=== PATIENT | male | born 1955 | race Caucasian/White ===

== ENCOUNTER 2023-10-04 08:56 | Day surgery (SDC) | payer OTHER, SELFPAY ==
[2023-10-04] VITALS (9 sets, daily range): BP systolic 84–107; BP diastolic 65–82; PULSE 58–77; RESP 16–20; TEMP 36.1–36.2; O2SAT 91–98; BMI 27.0
[2023-10-04] MEDS: Lactated Ringers 1,000 ML 15 ML IV (09:26)
--- NOTE | 2023-10-04 09:41 | PCM.PRE.AN2 ---
ASA Classification* ASA Classification ASA Classification: 2 Assessment & Plan Anesthesia* Anesthesia Assessment Anesthesia Assessment: Discussed sedation and/or anesthesia options, risks, benefits, and alternatives with patient/parents/legal guardian/POA. Questions invited. The patient/parents/legal guardian/POA seems to understand and agrees to proceed with anesthesia plan. Reviewed the physical assessment, medical history, allergy history and patient home medications list prior to surgery/procedure/anesthetic and documented any changes. Performed airway and anesthesia risk assessments. 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 When Was Last Pacemaker Check QUESTION #4 FULL TEXT: You/Your Family Experience fever (hyperthermia) with Anesthesia Last Oral Intake Last Oral intake: Last Oral Intake NPO since 00:00 10/04/23 09:27 Meds taken in AM with sips of No 10/04/23 09:27 water? Meds patient instructed to take am of surgery PONV PONV - food preparation worker: PONV - food preparation worker Female No 09/30/23 15:28 HX of Motion Sickness No 09/30/23 15:28 HX of N/V After Surgery No 09/30/23 15:28 Non-Smoker No 09/30/23 15:28 Duration of Surgery greater No 09/30/23 15:28 than 60 minutes Number of Risk Factors PONV Score Height & Weight Height & Weight: Anesthesia: Height & Weight Height 5 ft 11 in 10/04/23 09:27 Weight: 87.997 kg 10/04/23 09:27 Body Mass Index (BMI) 27.0 10/04/23 09:27 Respiratory Assessment Respiratory Assessment - food preparation worker: Respiratory Tract Infection Hx - food preparation worker Hx Respiratory Tract Infection No 09/30/23 15:28 STOP Sleep Apnea STOP Sleep Apnea - food preparation worker: STOP Sleep Apnea - food preparation worker Hx Hypertension No 09/30/23 15:28 Hx Sleep Apnea No 09/30/23 15:28 CPAP BIPAP Do you snore loudly (louder No 09/30/23 15:28 than talking or can be heard Do you often feel tired/ No 09/30/23 15:28 fatigued/ sleepy during daytime? Has anyone observed you stop No 09/30/23 15:28 breathing during sleep? STOP Results Negative 09/30/23 15:28 QUESTION #5 FULL TEXT : Do you snore loudly (louder than talking or can be heard through closed doors)? 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 Specify any problems Hx of Preganancy in last 3 N/A 09/30/23 15:28 Months Nurse Filling Out Transfusion VCHRISTIN 09/30/23 15:28 & Questions: Date: 09/30/23 09/30/23 15:28 Time: 15:09/30/23 15:28 Patient unable to answer at this time (ie. confused, unrespo /Reproduction History /Reproductive History - food preparation worker: /Reproductive Hx- food preparation worker Hx Now Gestational Age (in weeks): EDC: Hx Hx Para Hx Section SAB Active Medications Active Medications: Current Medications Generic Name Dose Route Start Last Admin Trade Name Delia PRN Reason Stop Dose Admin Lactated Ringer's 1,000 mls @ 15 mls/hr 10/04/23 09:15 10/04/23 09:26 IV 15 mls/hr .Q48H KARLA Administration PFSH Medical History Wears dentures Smoker COPD (chronic obstructive pulmonary disease) Chronic cough Leg cramps History of stress test Home Medications ?Medication ?Instructions ?Recorded ?Last Taken ?Type rosuvastatin 20 mg tablet 20 mg PO DAILY 09/30/23 10/03/23 History tiotropium 2.5 mcg-olodaterol 2.5 2 puff inhalation DAILY 09/30/23 10/03/23 History mcg/actuation mist for inhalation (Stiolto Respimat) Allergy/AdvReac Type Severity Reaction Status Date / Time No Known Allergies Allergy Verified 10/04/23 09:16 Surgical History History of repair of ACL Hx of surgical procedure H/O colonoscopy Social History Smoking Status: Current every day smoker tobacco type: cigarettes alcohol intake: never substance use type: does not use Review of Systems (Anesthesia) ROS Narrative System reviewed and no additional complaints, except as documented.
--- NOTE | 2023-10-04 10:09 | PCM.HP.BLA ---
History and Physical Date of Admission: 10/04/23 Intake Vital Signs 08/01/2413:35 Height 5 ft 11 in Weight: 185 lb BMI 25.7 Intake Visit Reasons: COLONOSCOPY Chief Complaint: colonscopy Is patient in pain?: No Allergies No Known Allergies Allergy (Unverified 08/02/23 14:36) PFSH Surgical History (Updated 08/02/23 @ 14:42 by Latrice Leblanc LPN) H/O colonoscopy Social History (Updated 08/02/23 @ 14:44 by Latrice Leblanc LPN) Smoking Status: Current every day smoker alcohol intake: never substance use type: does not use HPI HPI Chief Complaint: colonscopy Details: Patient was informed that today's visit charges, even if billed to insurance may still be the patient's responsibility to pay. JOHN DAVIS, is a 68 M who presents to the office today for screening colonoscopy. Patient has last colonoscopy 13 years ago and polyps were removed. He denies abdominal pain or blood in stool at this time. He has no family history of colon cancer. [facility] ROS Const Constitutional: No anorexia, body ache or abnormal sleep pattern Eyes Eyes: No change in vision ENT ENT: No abnormal hearing, ear or mastoid pain, ear discharge, difficulty swallowing or lip swelling Resp Respiratory: No cough or chest congestion Cardio Cardiology: No chest pain at rest Gastro GI: Positive for bloating; No abdominal pain, constipation, difficulty swallowing, Blood in stool or vomiting Genitourinary Male: No burning urination Neuro Neurology: No abnormal hearing Psych Psychiatric: No abnormal sleep pattern Aller/Imm Allergy/Immunologic: No lip swelling Exam Const General: cooperative Orientation: alert and oriented x3 HENMT Head: normal to inspection Neck Neck: normal visual inspection and full ROM Chest Chest palpation & inspection: normal inspection of the chest Resp Effort & Inspection: normal respiratory effort Cardio Rate: regular rate Rhythm: regular rhythm GI Inspection: non-distended Palpation: soft and nontender Skin General: no rashes or lesions noted Neuro General: patient alert and patient oriented x3 Extrem General: full ROM Psych Appearance: grossly normal Mental Status: mental status grossly normal Coding Level of Care Code 11-20 minutes Diagnoses Screen for colon cancer Z12.11 Assessment and Plan Assessment and Plan (1) Screen for colon cancer: Status: Acute Plan: I discussed screening colonoscopy with the patient over the phone during virtual visit today. We were on the phone from [id number]. We discussed screening colonoscopy. I explained endoscopy in detail to the patient. I explained the risks including but not limited to stroke or heart attack with anesthesia, perforation of the GI tract, bleeding, infection. I explained that any of these could necessitate further emergency surgery. The patient understands and all questions were answered sufficiently. The patient wishes to proceed with procedure. Patient may continue his aspirin. Osmani Rizo MD Pager: [facility] [address] [place] [address], [address] [place] [address] Office: I have examined the patient and the H&P has been reviewed. There are no clinical changes since date of exam.
--- NOTE | 2023-10-04 10:15 | COLBX_PTH ---
PATIENT: JOHN DAVIS LOC: EN U#:[id number] AGE/SX: 68/M ROOM: RE10/04/[address]: Dr. Osmani Rizo MD : 1955 BED: DIS: 10/04/2023 SPEC #: [id number] RECD: 10/04/23 13:36 STATUS: FAVIAN RESteff #: [id number] DANA: 10/04/23 10:[address]: Osmani Rizo DEPT: SURGICAL PATHOLOGY RECD BY: Bertha Mrogan ENTERED: 10/07/23 09:41 SP TYPE: COLON BX OTHR DR: No Primary Care Phys Tissues: Rectum, NOS Procedures: Surgery Specimen Level IV HEADER OPERATION: Colonoscopy, polypectomy PRE-OP DIAGNOSIS: Screen for colon cancer TISSUE SUBMITTED: Rectal polyp MICROSCOPIC DIAGNOSIS Rectal polyp, polypectomy: Hyperplastic polyp. [facility]/ 10/08/2023 MICROSCOPIC DESCRIPTION Slides are reviewed. GROSS DESCRIPTION Received in fixative is one container labeled with the patient's name and designated Rectal polyp. The specimen consists of a gutierrez-pink polyp measuring 0.5 x 0.5 x 0.3 cm. The entire specimen is submitted in one cassette. [facility]/ 10/07/2023 TC:1 CPT:48160
--- NOTE | 2023-10-04 11:29 | OP.CCLET_ITS ---
10/04/2023 No Primary Care Physician Re : Colonoscopy procedure for Navdeep Syed Dear Care Physician This procedure was performed on Wednesday, October 04, 2023. My impressions and recommendations are as follows: Impressions : - The entire examined colon is normal. - One small polyp in the rectum, removed with a hot snare. Resected and retrieved. - The examination was otherwise normal on direct and retroflexion views. Recommendations : - Discharge patient to home. - Resume previous diet. - Continue present medications. - Await pathology results. - Repeat colonoscopy in 5 years for surveillance based on pathology results. My findings are described in the full procedure note, which is enclosed. If I can be of further assistance, please feel free to contact me at Doctor phone number(s): , Work: . Sincerely, Osmani Rizo MD 10/04/2023 11:29:00 AM This report has been signed electronically.
--- NOTE | 2023-10-04 11:29 | OP.COLON_ITS ---
Patient Name: Navdeep Syed Procedure Date: 10/04/2023 10:14 AM Date of : 1955 Age: 68 Procedure: Colonoscopy Indications: Screening for colorectal malignant neoplasm Providers: Osmani Rizo MD Referring MD: Osmani Rizo MD Medicines: Propofol per Anesthesia Patient Profile: This is a 68 year old male. Refer to note in patient chart for documentation of history and physical. Last Colonoscopy: none. The patient's first colonoscopy is today. Complications: No immediate complications. Estimated blood loss: Minimal. Procedure: Pre-Anesthesia Assessment: - Prior to the procedure, a History and Physical was performed, and patient medications and allergies were reviewed. The patient's tolerance of previous anesthesia was also reviewed. The risks and benefits of the procedure and the sedation options and risks were discussed with the patient. All questions were answered, and informed consent was obtained. Prior Anticoagulants: The patient has taken no anticoagulant or antiplatelet agents. After reviewing the risks and benefits, the patient was deemed in satisfactory condition to undergo the procedure. After I obtained informed consent, the scope was passed under direct vision. Throughout the procedure, the patient's blood pressure, pulse, and oxygen saturations were monitored continuously. The Colonoscope was introduced through the anus and advanced to the cecum, identified by appendiceal orifice and ileocecal valve. The colonoscopy was performed without difficulty. The patient tolerated the procedure well. The quality of the bowel preparation was good. The ileocecal valve, appendiceal orifice, and rectum were photographed. Scope In: 11:09:13 AM Scope Withdrawal Time 0 hours 5 minutes 2 seconds Scope Out: 11:25:05 AM Total Procedure Duration Time 0 hours 15 minutes 52 seconds Findings: The entire examined colon appeared normal. A small polyp was found in the rectum. The polyp was removed with a hot snare. Resection and retrieval were complete. The exam was otherwise without abnormality on direct and retroflexion views. Impression: - The entire examined colon is normal. - One small polyp in the rectum, removed with a hot snare. Resected and retrieved. - The examination was otherwise normal on direct and retroflexion views. Recommendation: - Discharge patient to home. - Resume previous diet. - Continue present medications. - Await pathology results. - Repeat colonoscopy in 5 years for surveillance based on pathology results. Procedure Code(s): --- Professional --- 49637, Colonoscopy, flexible; with removal of tumor(s), polyp(s), or other lesion(s) by snare technique Diagnosis Code(s): --- Professional --- Z12.11, Encounter for screening for malignant neoplasm of colon D12.8, Benign neoplasm of rectum CPT copyright 2021 [employer]. All rights reserved. The codes documented in this report are preliminary and upon doctor's assistant review may be revised to meet current compliance requirements. Osmani Rizo MD 10/04/2023 11:29:00 AM This report has been signed electronically. Number of Addenda: 0 Note Initiated On: 10/04/2023 10:14 AM
--- NOTE | 2023-10-04 11:31 | PCM.POST.ANE ---
Anesthesia: Postop Eval I Current Vital Signs Temperature: 97.0 F Pulse Rate: 70 Blood Pressure: 84/67 Respiratory Rate: 20 Pulse Ox: 91 Oxygen Delivery Method: Room Air Assessment Airway patent: Yes Spontaneous unlabored respirations: Yes Mental status: Asleep nausea: No Vomiting: No Anesthesia Complication: No Fluid Hydration Crystalloid volume administer (ml): 400 Total IV fluid infused: 400 Progress Note Anesthesia document: Postop Eval 1 completed: Yes
--- NOTE | 2023-10-04 12:14 | POSTOPAN2_ITS ---
Anesthesia Postop Eval I Sum Postop Eval Completion status Anesthesia document: Postop Eval 1 completed: Yes Anesthesia Postop Eval I Summary Anesthesia Postop Eval I Summary: Anesthesia Postop Eval I: Assessment Summary Airway patent Yes 10/04/23 11:33 COURT [email or web address] Spontaneous unlabored Yes 10/04/23 11:33 COURT [email or web address] respirations Mental status Asleep 10/04/23 11:[address] COURT LIAISON.[email or web address] nausea No 10/04/23 11:[address] COURT LIAISON.JDEF Vomiting No 10/04/23 11:[address] LIAISON.[email or web address] Anesthesia Postop Eval I: Fluid Summary Crystalloid volume administer 400 10/04/23 11:[address] LIAISON.[email or web address] (ml) Colloids volume administered ( ml) Blood Product volume administered (ml) Total IV fluid infused 400 10/04/23 11:[address] LIAISON.[email or web address] Anesthesia Postop Eval I: Summary Notes Anesthesia Complication No 10/04/23 11:[address] LIAISON.[email or web address] Anesthesia Complication Comment: Post-operative progress note Anesthesia: Postop Eval II Evaluation Mental status: Awake Pain Level: 0 nausea: No Vomiting: No
--- NOTE | 2023-10-04 12:14 | PCM.POSTANE2 ---
Anesthesia Postop Eval I Sum Postop Eval Completion status Anesthesia document: Postop Eval 1 completed: Yes Anesthesia Postop Eval I Summary Anesthesia Postop Eval I Summary: Anesthesia Postop Eval I: Assessment Summary Airway patent Yes 10/04/23 11:33 FLORAL [email or web address] Spontaneous unlabored Yes 10/04/23 11:33 FLORAL [email or web address] respirations Mental status Asleep 10/04/23 11:33 FLORAL [email or web address] nausea No 10/04/23 11:33 FLORAL DESIGNER.JDEF Vomiting No 10/04/23 11:33 FLORAL DESIGNER.JDEF Anesthesia Postop Eval I: Fluid Summary Crystalloid volume administer 400 10/04/23 11:33 FLORAL DESIGNER.JDEF (ml) Colloids volume administered ( ml) Blood Product volume administered (ml) Total IV fluid infused 400 10/04/23 11:33 FLORAL DESIGNER.JDEF Anesthesia Postop Eval I: Summary Notes Anesthesia Complication No 10/04/23 11:33 FLORAL DESIGNER.JDEF Anesthesia Complication Comment: Post-operative progress note Anesthesia: Postop Eval II Evaluation Mental status: Awake Pain Level: 0 nausea: No Vomiting: No
== END 2023-10-04 12:13 | disposition home or self-care (01) ==
LOC: EN 08:59 → AC 09:01
PROVIDERS: Visit Provider Surgery
PROC: 0DJD8ZZ Inspection of Lower Intestinal Tract, Via Natural or Artificial Opening Endoscopic (ICD-10-PCS; CPT 45378; principal; 2023-10-04 10:10)
DX: Z12.11 Encounter for screening for malignant neoplasm of colon (principal); J44.9 Chronic obstructive pulmonary disease, unspecified; K62.1 Rectal polyp; F17.200 Nicotine dependence, unspecified, uncomplicated; Z86.010 Personal history of colon polyps; Z79.51 Long term (current) use of inhaled steroids; Z79.899 Other long term (current) drug therapy
CPT/HCPCS: 45385; 88305; J7120; J2405